=== PATIENT | male | born 1955 | race Caucasian/White ===

== ENCOUNTER 2021-03-14 10:22 | Emergency (ER) | payer MEDICARE ==
[~2021-03-14] VITALS: Ht 177.8 cm; Wt 83.5 kg
[~2021-03-14 10:22] MED LIST: LISINOPRIL5 MG PO; NORVASC5 MG PO; SYMBICORT 16010.2 GM INH; XARELTO20 MG PO; duoneb INH
[2021-03-14] MEDS ORDERED: SODIUM CHLORIDE 0.9% 1000ML 1,000 ML IV STA (10:54)
[2021-03-14 11:40] LABS: BASOPHILS # (AUTO) 0.1 (0.0-0.1); BASOPHILS % 0.8 % (0.0-1.0); EOSINOPHILS # (AUTO) 0.1 (0.0-0.4); EOSINOPHILS % 0.8 % (0.0-6.0); HEMATOCRIT 41.9 % (38.2-49.6); HEMOGLOBIN 13.2 g/dL (14.0-18.0); LYMPHOCYTES # (AUTO) 1.1 (1.0-3.2); LYMPHOCYTES % 12.7 % (18.0-39.1); MEAN CORPUSCULAR HGB CONC 31.5 g/dL (31-35); MEAN CORPUSCULAR VOLUME 79.4 fL (81-99); MONOCYTES # (AUTO) 0.6 (0.2-0.8); NEUTROPHILS # (AUTO) 6.7 (2.1-6.9); NEUTROPHILS % 78.5 % (38.7-80.0); PLATELET COUNT 291 x10e3/uL (140-360); RED BLOOD COUNT 5.28 x10e6/uL (4.3-5.7); RED CELL DISTRIBUTION WIDTH 14.3 % (11.7-14.4)
[2021-03-14 11:56] LABS: ALANINE AMINOTRANSFERASE 14 IU/L (0-55); ALBUMIN 4.5 g/dL (3.5-5.0); ALBUMIN/GLOBULIN RATIO 1.3 (0.8-2.0); ALKALINE PHOSPHATASE 106 IU/L (40-150); ANION GAP 15.6 mmol/L (8-16); BLOOD UREA NITROGEN 10 mg/dL (7-26); BUN/CREATININE RATIO 12 (6-25); CALCIUM 9.2 mg/dL (8.4-10.2); CARBON DIOXIDE 27 mmol/L (22-29); CHLORIDE 98 mmol/L (98-107); CREATININE, SERUM 0.82 mg/dL (0.72-1.25); EST GLOMERULAR FILTRATION RATE > 60 ML/MIN (60-); GLUCOSE 117 mg/dL (74-118); LIPASE 32 U/L (8-78); POTASSIUM 3.6 mmol/L (3.5-5.1); SODIUM 137 mmol/L (136-145)
[2021-03-14 12:46] LABS: CLARITY,URINE CLOUDY (CLEAR); COLOR,URINE YELLOW (YELLOW); KETONES,URINE 3+ (NEGATIVE); LEUKOCYTE ESTERASE ,URINE NEGATIVE (NEGATIVE); NITRITE,URINE NEGATIVE (NEGATIVE); PROTEIN,URINE DIPSTICK 2+ (NEGATIVE)
[2021-03-14 12:47] LABS: URINE UROBILINOGEN 0.2 mg/dL (0.2 - 1)
[2021-03-14] MEDS ORDERED: IOPAMIDOL 370 MG/ML 200 ML INFUS..BTL INJ ONE (12:48)
[2021-03-14] MEDS ORDERED: SODIUM CHLORIDE 0.9% 100 ML ONE (12:48)
[2021-03-14 13:20] LABS: BACTERIA,URINE MANY /HPF; EPITHELIAL CELLS,URINE FEW /LPF; MUCUS,URINE MANY (RARE)
[2021-03-14] MEDS ORDERED: CEFTRIAXONE SOD 1 GM in SODIUM CHLORIDE 0.9% 50ML 50 ML IV ONE (13:30)
[2021-03-14] MEDS ORDERED: CEFTRIAXONE SOD 1 GM/50 ML BAG IV ONE (13:30)
[2021-03-14] MEDS ORDERED: CEPHALEXIN500 MG PO (14:04)
== END 2021-03-14 14:49 | disposition home or self-care (01) ==
LOC: ER 10:26
DX: K62.5 Hemorrhage of anus and rectum (principal); K57.90 Diverticulosis of intestine, part unspecified, without perforation or abscess without bleeding; N39.0 Urinary tract infection, site not specified; N40.1 Benign prostatic hyperplasia with lower urinary tract symptoms; I48.91 Unspecified atrial fibrillation; I10 Essential (primary) hypertension; E78.5 Hyperlipidemia, unspecified; J44.9 Chronic obstructive pulmonary disease, unspecified
CPT/HCPCS: 36415; 74174; 80053; 81001; 83690; 85025; 93005; 99284; J7030; J7050; Q9967